=== PATIENT | male | born 2000 | race Caucasian/White ===

== ENCOUNTER 2024-06-03 16:56 | Outpatient (OUT) | payer BC, SELFPAY ==
--- NOTE | 2024-06-03 17:05 | US_ITS ---
The [address] [address] Patient Name: BASILIA CEDENO MRN: [id number] date: 2000 Sex: M Assigned Patient Location: US Current Patient Location: US Accession/Order Number: [id number] Exam Date: 06/03/2024 17:15 Report Date: 06/03/2024 18:42 At the request of: CAMILLE DURON Procedure: US appendix EXAM: US appendix REASON FOR EXAM: Male, 23 years, GASTROENTERITIS K52.9. TECHNIQUE: Limited sonography of the right lower quadrant is performed. COMPARISON: None. FINDINGS: There is a tubular structure in the right lower quadrant measuring 1.7 cm in diameter. No adjacent inflammatory changes or fluid is seen. The eeg technologist reports that the patient had mild tenderness to scanning in this region. IMPRESSION: The region measured by the eeg technologist could potentially represent a dilated appendix, however, I see no adjacent inflammatory changes and suspect this may be a loop of small bowel. Given the history of symptoms for one week, I would expect significant inflammatory change if this truly represented acute appendicitis. Depending on the level of clinical suspicion for acute appendicitis, a CT can be performed, preferably with intravenous contrast. This finding was placed in the stat call folder for communication to the referring clinician. Electronically authenticated by: OFELIA DUONG Date: 06/03/2024 18:42
== END 2024-06-03 16:57 | disposition home or self-care (01) ==
PROVIDERS: PCP Family Medicine; Visit Provider Family Medicine
DX: K52.9 Noninfective gastroenteritis and colitis, unspecified (principal)
CPT/HCPCS: 76705

== ENCOUNTER 2024-06-04 11:11 | Outpatient (OUT) | payer BC, SELFPAY ==
--- NOTE | 2024-06-04 11:15 | CT_ITS ---
[address] [address] Patient Name: BASILIA CEDENO MRN: [id number] date: 2000 Sex: M Assigned Patient Location: CT Current Patient Location: CT Accession/Order Number: [id number] Exam Date: 06/04/2024 12:30 Report Date: 06/04/2024 13:33 At the request of: CAMILLE DURON Procedure: CT abdomen pelvis wo con EXAMINATION: CT abdomen pelvis wo con HISTORY: Right Lower Quadrant Pain COMPARISON: No relevant comparison available. TECHNIQUE: Axial, Coronal, and Sagittal images were created without IV contrast. Dose reduction techniques were achieved by using automated exposure control and/or adjustment of mA and/or kV according to patient size and/or use of iterative reconstruction technique. FINDINGS: LUNG BASES: No visible pulmonary or pleural disease. LIVER: No enlargement, atrophy, abnormal density, or significant focal lesion. BILIARY: No dilatation or calcification. PANCREAS: No lesion, fluid collection, ductal dilatation, or atrophy. SPLEEN: No enlargement or focal lesion. ADRENALS: No mass or enlargement. KIDNEYS: No mass, obstruction, or calcification. BOWEL/MESENTERY: The tip of the appendix is enlarged in size measuring 7.1 mm with some mild periappendiceal stranding this is best seen on axial images 71 and 72. Nonobstructive bowel gas pattern. AORTA/VASCULAR: No aneurysm or dissection. RETROPERITONEUM: No mass or adenopathy. LYMPH NODES: No adenopathy. URINARY BLADDER: No visible focal wall thickening, lesion, or calculus. PELVIC ORGANS: No visible mass. Pelvic organs appropriate for patient age. ABDOMINAL WALL: No mass or hernia. BONES: No bony lesion or fracture. OTHER: Negative. CT/CT abdomen pelvis wo con IMPRESSION: Findings suspicious for acute early uncomplicated appendicitis Electronically authenticated by: CAR RICARDO Date: 06/04/2024 13:33
== END 2024-06-04 11:12 | disposition home or self-care (01) ==
LOC: CT 11:11
PROVIDERS: PCP Family Medicine; Visit Provider Family Medicine
DX: R10.31 Right lower quadrant pain (principal)
CPT/HCPCS: 74176; Q9966